=== PATIENT | female | born 1985 | race Caucasian/White ===

== ENCOUNTER 2018-02-22 16:35 | Emergency (ER) | payer OTHER ==
[2018-02-22 16:55] VITALS: BP 110/66; PULSE 90; TEMP 98; BMI 22.4
--- NOTE | 2018-02-22 16:57 | PDOC ---
Rapid Medical Evaluation Chief Complaint: Vaginal Bleeding Time Seen by Provider: 02/22/18 16:53 Medical Evaluation: Allergies Allergy/AdvReac Type Severity Reaction Status Date / Time No Known Allergies Allergy Verified 02/22/18 16:52 02/22/18 16:53 I have performed a brief in-person evaluation of this patient. The patient presents with a chief complaint of: LMP 2/11- 16 weeks preg and started vag bleeding - noted some jelly and brown staing. No cramping or fevers Pertinent physical exam findings: pale, non toxic I have ordered the following: CBC, Bhcg, UA, Type and Screen. The patient will proceed to the ED for further evaluation.
[2018-02-22 17:28] LABS: BASO % 0.4 % (0-2.0); EOS % 1.3 % (0-4.5); HEMATOCRIT 36.2 % (32.4-45.2); HEMOGLOBIN 12.7 GM/dL (10.7-15.3); LYMPH % 22.4 % (8-40); MEAN CELL VOLUME 91.6 fl (80-96); MEAN PLT VOLUME 8.2 fl (7.5-11.1); MONO % 7.8 % (3.8-10.2); NEUT % 68.1 % (42.8-82.8); PLATELET COUNT 283 K/MM3 (134-434); RBC 3.95 M/mm3 (3.60-5.2); RDW 13.7 % (11.6-15.6); WHITE BLOOD COUNT 10.2 K/mm3 (4.0-10.0)
--- NOTE | 2018-02-22 17:51 | PDOC ---
History of Present Illness - General History Source: Patient Exam Limitations: Language Barrier - History of Present Illness Initial Comments: 02/22/18 17:54 The patient is a 33 year old female, A0, 16 weeks with no significant PMH who presents to the emergency department with vaginal spotting and one episode of nonbloody, nonbilious vomit earlier today. The patient states she had an ultrasound 3 weeks ago in [facility]. The patient denies chest pain, shortness of breath, headache and dizziness. Denies fever, chills, nausea, diarrhea and constipation. Denies dysuria, frequency, urgency and hematuria. Allergies: NKA Past surgical history: None reported. Social history: No reported alcohol, drug, or cigarette use. <Leeanna Colvin - Last Filed: 02/22/18 18:08> <Libby Mandel - Last Filed: 02/22/18 20:06> - General Chief Complaint: Vaginal Bleeding Stated Complaint: VAGINAL BLEEDING (14 WKS ) Time Seen by Provider: 02/22/18 16:53 Past History <Leeanna Colvin - Last Filed: 02/22/18 18:08> - Suicide/Smoking/Psychosocial Hx Smoking History: Never smoked <Libby aMndel - Last Filed: 02/22/18 20:06> - Past Medical History Allergies/Adverse Reactions: Allergies Allergy/AdvReac Type Severity Reaction Status Date / Time No Known Allergies Allergy Verified 02/22/18 16:52 Review of Systems - Review of Systems Able to Perform ROS?: Yes Comments:: 02/22/18 17:55 CONSTITUTIONAL: Absent: fever, no chills, no fatigue EYES: Absent: visual changes ENT: Absent: ear pain, no sore throat CARDIOVASCULAR: Absent: chest pain, no palpitations RESPIRATORY: Absent: cough, no SOB GI: Absent: abdominal pain, no nausea, no constipation, no diarrhea Present: Vomiting. GENITOURINARY: Absent: dysuria, no frequency, no hematuria Present: vaginal spotting. MUSKULOSKELETAL: Absent: back pain, no arthralgia, no myalgia SKIN: Absent: rash NEURO: Absent: headache <Leeanna Colvin - Last Filed: 02/22/18 18:08> *Physical Exam - Vital Signs Last Vital Signs Temp Pulse Resp BP Pulse Ox 98.0 F 90 18 110/66 99 02/22/18 16:53 02/22/18 16:53 02/22/18 16:53 02/22/18 16:53 02/22/18 16:53 - Physical Exam Comments: 02/22/18 17:58 GENERAL: Well-appearing, well-nourished. No apparent distress. HEENT: Normocephalic, atraumatic. PERRL, EOM intact. CARDIOVASCULAR: Normal S1, S2. Regular rate and rhythm. PULMONARY: Clear to auscultation bilaterally. ABDOMEN: Soft, non-distended, non-tender. EXTREMITIES: Normal ROM in all four extremities. No gross deformities. SKIN: Warm, dry. No rash NEUROLOGICAL: No focal neurological deficits. <Leeanna Colvin - Last Filed: 02/22/18 18:08> - Vital Signs Last Vital Signs Temp Pulse Resp BP Pulse Ox 98.0 F 90 18 110/66 99 02/22/18 16:53 02/22/18 16:53 02/22/18 16:53 02/22/18 16:53 02/22/18 16:53 <Libby Mandel - Last Filed: 02/22/18 20:06> ED Treatment Course - LABORATORY CBC & Chemistry Diagram: 02/22/18 17:06 - ADDITIONAL ORDERS Additional order review: 02/22/18 17:06 RBC 3.95 MCV 91.6 MCHC 35.0 RDW 13.7 MPV 8.2 Neutrophils % 68.1 Lymphocytes % 22.4 Monocytes % 7.8 Eosinophils % 1.3 Basophils % 0.4 <Leeanna Colvin - Last Filed: 02/22/18 18:08> - LABORATORY CBC & Chemistry Diagram: 02/22/18 17:06 - ADDITIONAL ORDERS Additional order review: 02/22/18 17:06 RBC 3.95 MCV 91.6 MCHC 35.0 RDW 13.7 MPV 8.2 Neutrophils % 68.1 Lymphocytes % 22.4 Monocytes % 7.8 Eosinophils % 1.3 Basophils % 0.4 <Libby Mandel - Last Filed: 02/22/18 20:06> Medical Decision Making - Medical Decision Making 02/22/18 17:51 33-year-old female who is visiting from [facility]. Presents because she's had some dark brown discharge and she is 16 weeks . -Her last ultrasound was approximately 3 weeks ago in the [facility]. Past medical history 2, para 1, last CHILDBIRTH was 2010, which is normal spontaneous vaginal delivery Plan beta-hCG, type and screen, ultrasound Patient has no constitutional complaints and stable vital signs 02/22/18 20:05 Ultrasound showed a single live intrauterine 17 weeks 1 day. heart tones 148 bpm. The rest of her ultrasound was within normal limits. Impression threatened AB during . 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 <Leeanna Colvin - Last Filed: 02/22/18 18:08> <Libby Mandel - Last Filed: 02/22/18 20:06> Diagnosis at time of Disposition: Threatened - Discharge Dispostion Disposition: HOME Condition at time of disposition: Stable - Patient Instructions Printed Discharge Instructions: DI for Vaginal Bleeding During Additional Instructions: please continue with your care
== END 2018-02-22 19:58 | disposition home or self-care (01) ==
LOC: JER 16:35
DX: O26.892 Other specified pregnancy related conditions, second trimester (principal); O20.0 Threatened abortion; Z3A.17 17 weeks gestation of pregnancy
CPT/HCPCS: 36415; 76815-TC; 84702; 85025; 86850; 86900; 86901; 99283-25

== ENCOUNTER 2018-08-04 23:00 | Inpatient (IN) | payer OTHER ==
[2018-08-05] MEDS ORDERED: ELECTROLYTE-148 SOLN 250 ML IV ONE (00:30)
[2018-08-05] MEDS ORDERED: AMPICILLIN SODIUM 2 GM VIAL ONE (00:43)
[2018-08-05] MEDS ORDERED: AMPICILLIN - 2 GM in SODIUM CHLORIDE 100 ML IVPB ONE (00:50)
[2018-08-05] MEDS ORDERED: ELECTROLYTE-148 SOLN 1,000 ML IV SCH (01:00)
[2018-08-05 01:06] VITALS: BMI 27.3
[2018-08-05 01:06] LABS: BASO % 0.2 % (0-2.0); EOS % 0.9 % (0-4.5); HEMATOCRIT 36.7 % (32.4-45.2); HEMOGLOBIN 12.4 GM/dL (10.7-15.3); LYMPH % 26.6 % (8-40); MCH 30.6 pg (25.7-33.7); MCHC 33.9 g/dl (32.0-36.0); MEAN CELL VOLUME 90.4 fl (80-96); MEAN PLT VOLUME 8.7 fl (7.5-11.1); MONO % 9.3 % (3.8-10.2); PLATELET COUNT 270 K/MM3 (134-434); RBC 4.06 M/mm3 (3.60-5.2); RDW 14.1 % (11.6-15.6); WHITE BLOOD COUNT 11.5 K/mm3 (4.0-10.0)
[2018-08-05 01:16] LABS: INR 0.96 (0.83-1.09); PROTHROMBIN TIME (PATIENT) 11.3 SEC (9.7-13.0)
--- NOTE | 2018-08-05 01:17 | PN ---
Progress Note (short form) - Note Progress Note: cx 5 cm 80 vx -1 mi , fhr cat 1, arom clear , contraction , irregular
[2018-08-05 01:18] LABS: ACTIVATED PTT 26.1 SECONDS (25.2-36.5)
[2018-08-05] MEDS ORDERED: FENTANYL/BUPIVACAINE/NS/PF - PCEA - 50 ML DISP.SYRIN EP ONE ×2 (01:21→04:53)
[2018-08-05 01:24] LABS: ANION GAP 11 MMOL/L (8-16); BLOOD UREA NITROGEN 8 mg/dL (7-18); CALCIUM 8.9 mg/dL (8.5-10.1); CHLORIDE 108 mmol/L (98-107); CO2 20 mmol/L (21-32); CREATININE 0.4 mg/dL (0.55-1.3); GLUCOSE,RANDOM 83 mg/dL (74-106); SODIUM 139 mmol/L (136-145)
[2018-08-05] MEDS ORDERED: BUPIVACAINE HCL/PF 0.25% (2.5MG/ML) 10 ML VIAL ONE ×2 (01:28→03:11)
--- NOTE | 2018-08-05 01:28 | HP ---
Past Medical History - Primary Care Physician PCP:: Roscoe Mckeon - Admission Chief Complaint: 40 weeks, labor History of Present Illness: 33 yo f g 2 p1001 40.4 weeks, labor , cx 4 cm 80 vx -1 mi, fhr cat 1, irregular contraction History Source: Patient Limitations to Obtaining History: Language Barrier - Past Medical History ...: 2 ...Para: 1 ...Term: 1 ...: 0 ...Spon : 0 ...Induced : 0 ...Multiple Gestation: 0 ...LMP: 10/31/17 ... Weeks Gestation by Dates: 39.5 ...EDC by Dates: 08/07/18 ...EDC by Sono: 08/01/18 - Past Surgical History Hx Myomectomy: No Hx Transabdominal Cerclage: No - Smoking History Smoking history: Never smoked Have you smoked in the past 12 months: No - Alcohol/Substance Use Hx Alcohol Use: No - Social History Usual Living Arrangement: Yes: With Spouse History of Recent Travel: No Home Medications - Allergies Allergies/Adverse Reactions: Allergies Allergy/AdvReac Type Severity Reaction Status Date / Time No Known Allergies Allergy Verified 08/04/18 23:54 - Home Medications Home Medications: Ambulatory Orders Vitamins (Sjr) - 1 tab PO DAILY 08/04/18 Review of Systems - Review of Systems Constitutional: reports: No Symptoms Eyes: reports: No Symptoms HENT: reports: No Symptoms Neck: reports: No Symptoms Cardiovascular: reports: No Symptoms Respiratory: reports: No Symptoms Gastrointestinal: reports: No Symptoms Genitourinary: reports: No Symptoms Breasts: reports: No Symptoms Reported Musculoskeletal: reports: No Symptoms Integumentary: reports: No Symptoms Neurological: reports: No Symptoms Endocrine: reports: No Symptoms Hematology/Lymphatic: reports: No Symptoms Psychiatric: reports: No Symptoms Physical Exam - Maternity Vital Signs: Vital Signs Temperature 98.2 F 08/05/18 00:58 Pulse Rate 90 08/05/18 00:58 Respiratory Rate 18 08/05/18 00:58 Blood Pressure 133/75 08/05/18 00:58 O2 Sat by Pulse Oximetry (%) Constitutional: Yes: Well Nourished, No Distress, Calm Eyes: Yes: WNL, Conjunctiva Clear, EOM Intact HENT: Yes: WNL, Atraumatic, Normocephalic Neck: Yes: WNL, Supple, Trachea Midline Cardiovascular: Yes: WNL, Regular Rate and Rhythm Breast(s): Yes: WNL - Abdominal Exam/OB Fundal Height: 40 Number of Fetuses: Single Presentation: Vertex Contractions: Yes Regularity: Irregular Intensity: Strong Monitor Mode: External Heart Rate Location: [facility] Category: I Accelerations: Uniform Decelerations: None - Vaginal Exam/OB Vaginal Bleediing: No Speculum Exam: No Dilatation (cm): 4cm Effacement (%): 80 Amniotic Membrane Status: Intact Presentation: Vertex/Position Station: -2 - Physical Exam Musculoskeletal: Yes: WNL Extremities: Yes: WNL Integumentary: Yes: WNL Deep Tendon Reflex Grade: Normal +2 ...Motor Strength: WNL Psychiatric: Yes: WNL - Labs Lab Results: CBC, BMP 08/05/18 00:40 08/05/18 00:40 Hemorrhage Risk Assessment - Risk Factors Medium Risk Factors: Yes: None High Risk Factors: Yes: None Risk Score: 1 Risk Level: Medium Risk Problem List - Problems (1) Postmaturity , 40-42 weeks gestation Code(s): O48.0 - POST-TERM (2) Labor established Code(s): [id number] - Assessment/Plan admit, fhm, pain management
[2018-08-05] MEDS ORDERED: NALOXONE HCL 0.4 MG/ML VIAL IVPUSH PRN (01:55)
[2018-08-05] MEDS ORDERED: FENTANYL/BUPIVACAINE/NS/PF - PCEA - 50 ML DISP.SYRIN EP SCH ×2 (02:00→02:19)
[2018-08-05] MEDS ORDERED: BUTORPHANOL TARTRATE 1 MG/ML VIAL ONE (02:49)
[2018-08-05] MEDS ORDERED: PROMETHAZINE HCL 25 MG/1 ML VIAL ONE (02:50)
[2018-08-05] MEDS ORDERED: LIDOCAINE HCL 1% PRESERVATIVE FREE - 30ML VIAL ONE (03:04)
[2018-08-05] MEDS ORDERED: OXYTOCIN 20 UNITS in 0.9% NS 20 UNIT/1,000 ML INFUS.BAG IV ONE ×2 (03:04→08:08)
[2018-08-05] MEDS ORDERED: AMPICILLIN - 1 GM in SODIUM CHLORIDE 100 ML IVPB SCH ×2 (03:50→04:50)
[2018-08-05] MEDS ORDERED: AMPICILLIN SODIUM 1 GM VIAL ONE (04:34)
[2018-08-05] MEDS ORDERED: PROMETHAZINE HCL 25 MG/1 ML VIAL IVPUSH ONE (05:15)
[2018-08-05] MEDS ORDERED: BUTORPHANOL TARTRATE 1 MG/ML VIAL IVPUSH ONE (05:15)
[2018-08-05] MEDS ORDERED: OXYTOCIN 20 UNITS in 0.9% NS 20 UNIT/1,000 ML INFUS.BAG IV SCH (06:00)
[2018-08-05] MEDS ORDERED: METHYLERGONOVINE MALEATE 0.2 MG/1 ML AMP IM ONE (06:00)
[2018-08-05] MEDS ORDERED: ACETAMINOPHEN 325 MG TABLET (FP) ONE (06:54)
[2018-08-05] MEDS: ACETAMINOPHEN 325 MG TABLET (FP) PO PRN ×2 (06:55→14:29)
[2018-08-05] MEDS: IBUPROFEN 600 MG TABLET (FP) PO PRN ×2 (06:55→14:30)
[2018-08-05] MEDS ORDERED: WITCH HAZEL 50% (TUCKS) 40 PAD/JAR PAD TP PRN (07:52)
[2018-08-05] MEDS ORDERED: METHYLERGONOVINE MALEATE 0.2 MG/1 ML AMP IM PRN (07:52)
[2018-08-05] MEDS ORDERED: BISACODYL 10 MG SUPP.RECT RC PRN (07:52)
[2018-08-05] MEDS ORDERED: BENZOCAINE 20% 57 GM BOTTLE TP PRN (07:52)
[2018-08-05] MEDS ORDERED: BENZOCAINE 28 GM HEMORRHOIDAL OINTMENT TP PRN (07:52)
[2018-08-05] MEDS ORDERED: D5W-LR W/ 20 UNITS OXYTOCIN 20 UNIT/1,000 ML INFUS.BAG IV SCH (08:00)
[2018-08-05] MEDS: FERROUS SO4 325 MG TABLET (FP) PO SCH ×2 (09:15→22:19)
[2018-08-05] MEDS: PRENATAL VITAMINS W/ FOLIC ACID TABLET (FP) PO SCH (09:15)
[2018-08-05] MEDS: SENNOSIDES/DOCUSATE COMBO (SENNA PLUS) TABLET (UD) PO PRN (22:19)
--- NOTE | 2018-08-06 06:57 | PN ---
Post Progress Note - Subjective Subjective: no complains Post Day: 1 Type of Delivery: Vital Signs: Vital Signs Temperature 98.5 F 08/06/18 02:00 Pulse Rate 80 08/06/18 02:00 Respiratory Rate 20 08/06/18 02:00 Blood Pressure 100/54 L 08/06/18 02:00 O2 Sat by Pulse Oximetry (%) 99 08/05/18 06:30 Breast Exam: Yes: Soft, Other (breast & bottle feeding ). No: Engorged Uterus: Yes: Fundus Firm, Fundus below umbilicus, Non-tender Lochia, amount: Small Extremities: Yes: Calves non-tender Perineum: Yes: Intact Activity: Ambulating - Labs Labs: CBC WBC 11.5 K/mm3 (4.0-10.0) H 08/05/18 00:40 RBC 4.06 M/mm3 (3.60-5.2) 08/05/18 00:40 Hgb 12.4 GM/dL (10.7-15.3) 08/05/18 00:40 Hct 36.7 % (32.4-45.2) 08/05/18 00:40 MCV 90.4 fl (80-96) 08/05/18 00:40 MCH 30.6 pg (25.7-33.7) 08/05/18 00:40 MCHC 33.9 g/dl (32.0-36.0) 08/05/18 00:40 RDW 14.1 % (11.6-15.6) 08/05/18 00:40 Plt Count 270 K/MM3 (134-434) 08/05/18 00:40 MPV 8.7 fl (7.5-11.1) 08/05/18 00:40 Absolute Neuts (auto) 7.3 K/mm3 (1.5-8.0) 08/05/18 00:40 Neutrophils % 63.0 % (42.8-82.8) 08/05/18 00:40 Lymphocytes % 26.6 % (8-40) 08/05/18 00:40 Monocytes % 9.3 % (3.8-10.2) 08/05/18 00:40 Eosinophils % 0.9 % (0-4.5) 08/05/18 00:40 Basophils % 0.2 % (0-2.0) 08/05/18 00:40 Nucleated RBC % 0 % (0-0) 08/05/18 00:40 Laboratory Tests 08/06/18 08:00 WBC 15.1 H Hgb 11.0 Hct 33.5 Plt Count 224 Problem List - Problems (1) Encounter for visit Code(s): Z39.2 - ENCOUNTER FOR ROUTINE FOLLOW-UP (2) Vaginal delivery Code(s): O80 - ENCOUNTER FOR FULL-TERM UNCOMPLICATED DELIVERY Assessment/Plan pp cbc pending plan ct pp car discharge tomorrow.
[2018-08-06 08:28] LABS: BASO % 0.4 % (0-2.0); HEMATOCRIT 33.5 % (32.4-45.2); LYMPH % 27.3 % (8-40); MCH 29.9 pg (25.7-33.7); MCHC 32.8 g/dl (32.0-36.0); MEAN CELL VOLUME 91.1 fl (80-96); MEAN PLT VOLUME 8.5 fl (7.5-11.1); MONO % 8.3 % (3.8-10.2); PLATELET COUNT 224 K/MM3 (134-434); RBC 3.68 M/mm3 (3.60-5.2); RDW 14.4 % (11.6-15.6); WHITE BLOOD COUNT 15.1 K/mm3 (4.0-10.0)
[2018-08-06] MEDS: PRENATAL VITAMINS W/ FOLIC ACID TABLET (FP) PO SCH (09:19)
[2018-08-06] MEDS: FERROUS SO4 325 MG TABLET (FP) PO SCH ×2 (09:19→21:34)
[2018-08-06] MEDS: ACETAMINOPHEN 325 MG TABLET (FP) PO PRN (09:19)
[2018-08-06] MEDS: IBUPROFEN 600 MG TABLET (FP) PO PRN (09:21)
[2018-08-06] MEDS: SENNOSIDES/DOCUSATE COMBO (SENNA PLUS) TABLET (UD) PO PRN (21:34)
--- NOTE | 2018-08-07 09:04 | PN ---
Post Progress Note - Subjective Subjective: c/o perineal soreness Post Day: 2 Type of Delivery: Vital Signs: Vital Signs Temperature 98.6 F 08/06/18 21:00 Pulse Rate 88 08/06/18 21:00 Respiratory Rate 20 08/06/18 21:00 Blood Pressure 108/69 08/06/18 21:00 O2 Sat by Pulse Oximetry (%) 99 08/05/18 06:30 Breast Exam: Yes: Soft, Other (BF). No: Engorged Uterus: Yes: Fundus Firm, Fundus below umbilicus, Non-tender Lochia: Yes: Rubra Lochia, amount: Small Extremities: Yes: Calves non-tender Perineum: Yes: Episiotomy (large edematous hemorrhoids ) Activity: Ambulating - Labs Labs: CBC WBC 15.1 K/mm3 (4.0-10.0) H 08/06/18 08:00 RBC 3.68 M/mm3 (3.60-5.2) 08/06/18 08:00 Hgb 11.0 GM/dL (10.7-15.3) 08/06/18 08:00 Hct 33.5 % (32.4-45.2) 08/06/18 08:00 MCV 91.1 fl (80-96) 08/06/18 08:00 MCH 29.9 pg (25.7-33.7) 08/06/18 08:00 MCHC 32.8 g/dl (32.0-36.0) 08/06/18 08:00 RDW 14.4 % (11.6-15.6) 08/06/18 08:00 Plt Count 224 K/MM3 (134-434) 08/06/18 08:00 MPV 8.5 fl (7.5-11.1) 08/06/18 08:00 Absolute Neuts (auto) 9.5 K/mm3 (1.5-8.0) H 08/06/18 08:00 Neutrophils % 63.0 % (42.8-82.8) 08/06/18 08:00 Lymphocytes % 27.3 % (8-40) 08/06/18 08:00 Monocytes % 8.3 % (3.8-10.2) 08/06/18 08:00 Eosinophils % 1.0 % (0-4.5) 08/06/18 08:00 Basophils % 0.4 % (0-2.0) 08/06/18 08:00 Nucleated RBC % 0 % (0-0) 08/06/18 08:00 Problem List - Problems (1) Encounter for visit Code(s): Z39.2 - ENCOUNTER FOR ROUTINE FOLLOW-UP (2) Vaginal delivery Code(s): O80 - ENCOUNTER FOR FULL-TERM UNCOMPLICATED DELIVERY Assessment/Plan stable plan : discharge today.
[2018-08-07] MEDS: PRENATAL VITAMINS W/ FOLIC ACID TABLET (FP) PO SCH (09:16)
[2018-08-07] MEDS: FERROUS SO4 325 MG TABLET (FP) PO SCH (09:16)
[2018-08-07 09:45] VITALS: BP 118/76; PULSE 84; TEMP 98
== END 2018-08-07 11:45 | disposition home or self-care (01) | DRG 560 ==
LOC: JDEL 23:00 → JLDR 08-05 00:15 → J3W 08-05 08:50
PROVIDERS: ADMIT Obstetrics & Gynecology; ATTEND Obstetrics & Gynecology
PROC: 0W8NXZZ Division of Female Perineum, External Approach (ICD-10-PCS; principal; 2018-08-05)
PROC: 10E0XZZ Delivery of Products of Conception, External Approach (ICD-10-PCS; 2018-08-05)
DX: O48.0 Post-term pregnancy (principal); O22.43 Hemorrhoids in pregnancy, third trimester; Z3A.40 40 weeks gestation of pregnancy; Z37.0 Single live birth
CPT/HCPCS: 36415; 59409; 80048; 85025; 85610; 85730; 86593; 86850; 86900; 86901

== ENCOUNTER 2018-08-09 14:55 | Emergency (ER) | payer OTHER ==
[2018-08-09 15:16] VITALS: BP 122/78; PULSE 83; TEMP 98.3; BMI 23.4
--- NOTE | 2018-08-09 15:52 | PDOC ---
History of Present Illness - General Chief Complaint: Pain Stated Complaint: BREAST PAIN POST Time Seen by Provider: 08/09/18 15:07 History Source: Patient Exam Limitations: No Limitations - History of Present Illness Initial Comments: 08/09/18 15:46 33-year-old healthy female day 5 of otherwise uncomplicated /delivery presents with bilateral breast discomfort. Patient was both breast- feeding and pumping for the first 3 days, the breast-feeding was painful so she stopped 2 days ago, now presents complaining of bilateral breast fullness and discomfort. No fevers or chills, no redness or abnormal swelling, no purulent discharge or bleeding. Did not take anything for pain, presents for evaluation. Had similar issues with her first baby, eventually resolved with time. Past History - Past Medical History Allergies/Adverse Reactions: Allergies Allergy/AdvReac Type Severity Reaction Status Date / Time No Known Allergies Allergy Verified 08/09/18 14:57 Home Medications: Ambulatory Orders Vit 93/Iron Fum/Folic [ Formula Tablet] 1 tab PO DAILY Asthma: No Cancer: No Cardiac Disorders: No COPD: No Diabetes: No HTN: No Seizures: No Thyroid Disease: No - Surgical History Appendectomy: Yes - Reproductive History (#): 2 Para: 1 Therapeutic (s) & number: No Spontaneous : 0 - Immunization History Immunization Up to Date: Yes - Suicide/Smoking/Psychosocial Hx Smoking History: Never smoked Have you smoked in the past 12 months: No Information on smoking cessation initiated: No Hx Alcohol Use: No Drug/Substance Use Hx: No Substance Use Type: None Hx Substance Use Treatment: No Review of Systems - Review of Systems Constitutional: No: Chills, Fever, Night Sweats Respiratory: No: Shortness of Breath Cardiac (ROS): No: Chest Pain ABD/GI: No: Nausea, Vomiting Integumentary: Yes: See HPI. No: Rash Neurological: No: Headache *Physical Exam - Vital Signs Last Vital Signs Temp Pulse Resp BP Pulse Ox 98.3 F 83 16 122/78 98 08/09/18 14:56 08/09/18 14:56 08/09/18 14:56 08/09/18 14:56 08/09/18 14:56 - Physical Exam Comments: 08/09/18 15:47 vital signs normal GENERAL: The patient is awake, alert, and fully oriented, in no acute distress. HEAD: Normal with no signs of trauma. EYES: Pupils equal, round and reactive to light, extraocular movements intact, sclera anicteric, conjunctiva clear. CHEST: heart is regular, lungs are clear EXTREMITIES: Normal range of motion, no edema. NEUROLOGICAL: Normal speech, normal gait.] PSYCH: Normal mood, normal affect. SKIN: Breast exam performed with nurse motor vehicles inspector at bedside, bilateral engorgement with palpable engorged ducts throughout the entire breast bilaterally, there is no focal area of warmth or erythema or induration or fluctuance, there is no discharge or bleeding. No skin defects. Medical Decision Making - Medical Decision Making 08/09/18 15:49 33-year-old female presents with bilateral breast engorgement without evidence of cellulitis/mastitis, hemodynamically stable and afebrile. Patient reassured, counseled regarding warm compresses and NSAIDs for pain control as well as supportive garments discussed s/sxs of mastitis and return criteria agrees with d/c plan, has f/u with Dr. Mckeon *DC/Admit/Observation/Transfer Diagnosis at time of Disposition: Breast engorgement, obstetric, delivered - Discharge Dispostion Disposition: HOME Condition at time of disposition: Stable - Referrals Referrals: Roscoe Mckeon MD [Primary Care Provider] - - Patient Instructions Printed Discharge Instructions: Breast Engorgement (Alternative Therapy) Additional Instructions: Activity as tolerated. Stay hydrated. Tylenol 1000 mg every 8 hours and/or ibuprofen 600 mg every 8 hours as needed for pain. Warm compresses to the affected areas for 20 minutes every 3-4 hours to reduce swelling. Wear supportive garments and avoid additional pumping. Continue your medications as previously prescribed by your physician. You should follow up with Dr. Mckeon as soon as possible regarding today's emergency department visit. Return to the emergency department for any new or concerning symptoms, particularly redness or pus, fevers or chills, intolerable pain or swelling or discoloration. - Post Discharge Activity
== END 2018-08-09 15:54 | disposition home or self-care (01) ==
LOC: FER 14:55
DX: O92.79 Other disorders of lactation (principal)
CPT/HCPCS: 99281-25